=== PATIENT | male | born 1985 | race Caucasian/White ===

== ENCOUNTER 2016-09-26 08:44 | Emergency (ER) | payer MEDICAID ==
[2016-09-26] MEDS ORDERED: NORMAL SALINE 1,000 ML in NORMAL SALINE 1,000 ML IV ONE (09:11)
[2016-09-26] MEDS ORDERED: ONDANSETRON HCL/PF 2 MG/ML VIAL IV ONE (09:11)
[2016-09-26] MEDS ORDERED: KETOROLAC TROMETHAMINE 30 MG/ML VIAL IV ONE (09:11)
--- NOTE | 2016-09-26 09:15 | ERNOTE ---
Abdominal HPI - Narrative Date of Service: 09/26/16 - General Chief Complaint: Abdominal Pain Time Seen by Provider: 09/26/16 08:58 Source: patient - Immun/Allergies/Home Medications Immunizatons: IMMUNIZATION HX Immunizations Up to Date Yes History of Influenza Vaccine No Hx Pneumococcal Vaccination No Allergies/Adverse Reactions: Allergies No Known Allergies Allergy (Verified 09/26/16 08:59) Home Medications: HOME MEDICATIONS ALPRAZolam [Xanax] 0.5 - 1 mg PO DAILY PRN 10/24/15 [Last Taken Unknown] Ibuprofen [Motrin] 800 mg PO DAILY PRN 10/24/15 [Last Taken 10/23/15 22:30] Lisinopril [Zestril] 10 mg PO DAILY 10/24/15 [Last Taken Unknown] Sertraline HCl [Zoloft] 150 mg PO DAILY 10/24/15 [Last Taken Unknown] Ciprofloxacin HCl [Cipro] 500 mg PO BID #20 tab 09/26/16 [Last Taken Unknown] Ondansetron [Zofran Odt] 4 mg PO Q6H PRN #20 tab 09/26/16 [Last Taken Unknown] metroNIDAZOLE [Flagyl] 500 mg PO Q12H #14 tab 09/26/16 [Last Taken Unknown] - History of Present Illness Timing: intermittent Quality: moderate, cramping Activities at Onset: none Associated Symptoms: Present: diarrhea-mucous Prior Abdominal Problems: Present: none Review of Systems - Review of Systems Constitutional: Present: See HPI EYE: Present: no symptoms reported ENT: Present: no symptoms reported Respiratory: Present: no symptoms reported Cardiology: Present: no symptoms reported Gastrointestinal/Abdominal: Present: nausea, diarrhea, abdominal pain Genitourinary: Present: no symptoms reported Musculoskeletal: Present: no symptoms reported Skin: Present: no symptoms reported Neurological: Present: no symptoms reported Endocrine: Present: no symptoms reported Hematologic/Lymphatic: Present: no symptoms reported Psych: Present: no symptoms reported - Patient's Past Medical History Patient History - Medical: Anxiety, Depression Patient History - Cardiac/Respiratory: No pertinent hx Patient History - Cancer: No Hx of Cancer Patient History - Surgical Procedures: T & A - Social History Living Situations: home Abuse History: No History of abuse Psych History: Hx of Anxiety, Hx of Depression Smoking Status: Current every day smoker Have you smoked in the past 12 months: Yes Alcohol Use: occasionally Drug Use: marijuana - Immunizations Immunizations Up to Date: Yes Hx Pneumococcal Vaccination: No History of Influenza Vaccine: No Physical Exam - Physical Exam General Appearance: Present: wd/wn, alert, moderate distress Eye Exam: Normal inspection: bilateral, PERRL: bilateral Ears, Nose, Throat: Present: hearing grossly normal, normal pharynx, dry mucous membranes Neck: Present: normal inspection, nontender Respiratory: Present: no respiratory distress, normal breath sounds, no accessory muscle use, chest nontender, lungs clear Cardiovascular/Chest: Present: regular rate, rhythm, no murmur, normal peripheral pulses Gastrointestinal/Abdominal: Present: nondistended, no organomegaly, tenderness, abnormal bowel sounds Rectal Exam: Present: deferred Back Exam: Present: normal inspection, normal range of motion Extremity Exam: Present: normal inspection, non-tender, no edema, normal range of motion Neurological Exam: Present: alert, oriented, normal mood/affect Skin Exam: Present: normal color, warm/dry Lymphatic Exam: Present: no adenopathy ED Progress - Results and Orders Patient's Lab Results:: I have reviewed the patient's lab results. - Vital Signs Patient's Vital Signs:: I have reviewed the patient's vital signs. Vital Signs: Vital Signs 09/26/16 08:56 Temperature 35.1 C L Pulse Rate 80 Respiratory 14 Rate Blood Pressure 161/92 O2 Sat by Pulse 98 Oximetry - X-Ray X-Ray #1 X-Ray: abdomen Interpretation: Reviewed by me - Progress/Reassessment Chief Complaint: Abdominal Pain Progress:: Improved - Transfer of Care Expected Disposition: Discharge Plan - Plan Plan: Pt to be started on a clear liquid diet, oral antibiotics and Pepto-Bismol with each diarrhea stool. He will call his FP this week for further care as needed. Departure - Departure Clinical Impression: Gastroenteritis Disposition: Home self-care Condition: Good Instructions: Viral Gastroenteritis, Adult, [id number] Referrals: Alcides Brooke MD [Primary Care Provider] - Prescriptions: Ciprofloxacin HCl [Cipro] 500 mg PO BID #20 tab Ondansetron [Zofran Odt] 4 mg PO Q6H PRN #20 tab PRN Reason: Nausea And Vomiting metroNIDAZOLE [Flagyl] 500 mg PO Q12H #14 tab
[2016-09-26] MEDS ORDERED: ONDANSETRON HCL/PF 2 MG/ML VIAL ONE (09:34)
[2016-09-26] MEDS ORDERED: KETOROLAC TROMETHAMINE 30 MG/ML VIAL ONE (09:34)
--- OUTSIDE RECORDS SUMMARY | 2016-09-26 09:41 | XMS REPORT | Continuity of Care Document ---
:1985 Author Organization [facility] ([facility]) [place] [address] Phone [phone] Care Team Providers Name Role Phone Unavailable Primary Care Provider Unavailable Source Comments This disclosure is being made pursuant to the Care Everywhere program, applicable federal and state laws, and may not contain all informaitonavailable regarding this patient.[facility] ([facility]) Active Allergies and Adverse Reactions Not on File Current Medications Not on file Active Problems Not on file Social History Tobacco Use Types Packs/Day Years Used Date Never Assessed Plan of Care Health Maintenance Due Date Last Done Comments Hepatitis B Vaccine (1 of 3 - Primary Series) 1985 Tdap Vaccine 1994 Lipid Disorder Screening 2001 MMR Vaccine 2001 Td Vaccine 2001 Varicella Vaccine (1 of 2 - Adult - No Evidence of 2001 Immunity) Influenza Vaccine: Seasonal (#1) 03/02/2016 Results from Last 3 Months Not on file
--- OUTSIDE RECORDS SUMMARY | 2016-09-26 09:41 | XMS REPORT | Summary of Care ---
:1985 Author Organization [facility] Address [address] [place] [address]- Care Team Providers Name Role Phone Alcides Brooke Primary Care Physician Encounter Date(s): 12/27/15 - 12/27/[address] [address]- [facility] Discharge Diagnosis: Pain and swelling of left lower leg Final: Pain in left lower leg Final: Other specified soft tissue disorders Discharge Disposition: 01 Discharged to Home or Self Care Attending Physician: MANUELA Bazzi Admitting Physician: MANUELA Bazzi Vital Signs Most recent to oldest 1 2 3 [Reference Range]: Temperature Temporal Artery 36.9 DegC 36.6 DegC [36.0-38.0 DegC] (12/27/15 9:25 PM) (12/27/15 6:32 PM) Heart Rate Monitored [60-100 58 bpm 69 bpm 76 bpm bpm] *LOW* (12/27/15 8:39 PM) (12/27/15 6:32 PM) (12/27/15 9:25 PM) Respiratory Rate [12-20 br/min] 16 br/min 20 br/min 20 br/min (12/27/15 9:25 PM) (12/27/15 8:39 PM) (12/27/15 6:32 PM) SpO2 98 % 98 % 98 % (12/27/15 9:25 PM) (12/27/15 8:39 PM) (12/27/15 6:32 PM) Blood Pressure [90-130/60-90 115/77mmHg 130/71mmHg 144/77mmHg mmHg] (12/27/15 9:25 PM) (12/27/15 8:39 PM) *HI* (12/27/15 6:32 PM) Most recent to oldest [Reference Range]: 1 2 3 Weight Dosing 167.10 kg1 (12/27/15 6:35 PM) Weight Measured 167.1 kg (12/27/15 6:32 PM) 1Result Comment: This result was because the dosing weight was either not entered or it is>30 days old. This result is based off: Weight Measured December 27, 2015 18:32:00 CDT by Lily Merida Problem List No Known Problems Allergies, Adverse Reactions, Alerts No Known Allergies Medications Flomax 0.4 mg oral capsule 1 cap(s), Oral, Daily, X 7 days, # 7 cap(s), 0 Refill(s) Start Date: 12/30/13 Stop Date: 01/06/14 Status: CompletedHYDROcodone-acetaminophen 5 mg-325 mg oral tablet 2 tab(s), Oral, q6hr, X 3 days, # 15 tab(s), 0 Refill(s) Start Date: 12/30/13 Stop Date: 01/02/14 Status: Completedibuprofen 800 mg oral tablet 1 tab(s), Oral, TID, PRN pain moderate 4-7, X 7 days, # 30 tab(s), 0 Refill(s) Start Date: 12/30/13 Stop Date: 01/06/14 Status: CompletedKeflex 500 mg oral capsule 1 cap(s), Oral, QID, X 10 days, # 40 cap(s), 0 Refill(s), Start Date: 12/27/15 20:55:00 CDT Start Date: 12/27/15 Stop Date: 01/06/16 Status: CompletedlamoTRIgine 100 mg oral tablet 1 tab(s), Oral, Daily Start Date: 09/14/15 Status: Orderedlisinopril 10 mg oral tablet 1 tab(s), Oral, Daily Start Date: 09/14/15 Status: OrderedNorco 5 mg-325 mg oral tablet 1 tab(s), Oral, q6hr, PRN for pain, X 5 days, # 20 tab(s), 0 Refill(s), Start Date: 12/27/15 20:55:00 CDT Start Date: 12/27/15 Stop Date: 01/01/16 Status: Completedpenicillin V potassium 500 mg oral tablet 1 tab(s), Oral, QID, # 40 tab(s), 0 Refill(s), Start Date: 09/14/15 13:20:00 ORTHOPAEDIC DOCTOR Start Date: 09/14/15 Stop Date: 12/27/15 Status: Completedsertraline 100 mg oral tablet 1 tab(s), Oral, Daily Start Date: 09/14/15 Status: OrderedZofran ODT 4 mg oral tablet, disintegrating 1 tab(s), Oral, q6hr, PRN nausea, X 3 days, # 10 tab(s), 0 Refill(s) Start Date: 12/30/13 Stop Date: 01/02/14 Status: Completed Results Patient Viewable Results Most recent to oldest [Reference Range]: 1 WBC [4.8-10.8 thou/mm3] 12.9 thou/mm3 *HI* (12/27/15 7:15 PM) RBC [4.60-6.00 Mil/mm3] 4.86 Mil/mm3 (12/27/15 7:15 PM) Hgb [14.0-18.0 g/dL] 14.0 g/dL (12/27/15 7:15 PM) Hct [42.0-52.0 %] 41.3 % *LOW* (12/27/15 7:15 PM) MCV [80.0-94.0 fL] 85.0 fL (12/27/15 7:15 PM) MCH [25.0-38.0 pg/cell] 28.8 pg/cell (12/27/15 7:15 PM) MCHC [31.0-37.0 g/dL] 33.9 g/dL (12/27/15 7:15 PM) RDW [1.0-48.0 fL] 41.0 fL (12/27/15 7:15 PM) Platelet [130-400 thou/mm3] 249 thou/mm3 (12/27/15 7:15 PM) Neutrophils % Auto [50.0-75.0 %] 67.2 % (12/27/15 7:15 PM) Immature Granulocyte Auto [0.1-2.0 %] 0.4 % (12/27/15 7:15 PM) Lymphocytes % Auto [15.0-41.0 %] 24.5 % (12/27/15 7:15 PM) Monocytes % Auto [2.0-10.0 %] 6.3 % (12/27/15 7:15 PM) Eosinophils % Auto [0.0-6.0 %] 1.4 % (12/27/15 7:15 PM) Basophil % Auto [0.0-1.0 %] 0.2 % (12/27/15 7:15 PM) Neutrophils Absolute [1.5-5.9 thou/mm3] 8.7 thou/mm3 *HI* (12/27/15 7:15 PM) Immature Gran Absolute [0.01-0.03 thou/mm3] 0.05 thou/mm3 *HI* (12/27/15:15 PM) Lymphocytes Absolute [1.5-4.0 thou/mm3] 3.2 thou/mm3 (12/27/15 7:15 PM) Monocytes Absolute [0.0-0.9 thou/mm3] 0.8 thou/mm3 (12/27/15 7:15 PM) Eosinophil Absolute [0.0-0.7 thou/mm3] 0.2 thou/mm3 (12/27/15 7:15 PM) Basophil Absolute [0.0-0.2 thou/mm3] 0.0 thou/mm3 (12/27/15 7:15 PM) INR [0.9-1.1 INR] 1.0 INR (12/27/15 7:15 PM) PTT [22.7-35.2 seconds] 32.9 seconds (12/27/15 7:15 PM) D-Dimer [0.00-0.49 mcgFEU/mL] 0.44 mcgFEU/mL1 (12/27/15 7:15 PM) 1Result Comment: In low risk patients, normal D-Dimer test results (< 0.50 ug FEU/mL) indicate a low probability for deep venous thrombosis/pulmonary embolism. Immunizations No data available for this section Procedures Procedure Date Related Diagnosis Body Site Tonsillectomy and adenoidectomy; age 12 or over Social History No data available for this section Assessment and Plan No data available for this section
--- OUTSIDE RECORDS SUMMARY | 2016-09-26 09:42 | XMS REPORT | Summary of Care ---
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
[2016-09-26 09:43] LABS: Hematocrit 41.3 % (42.0-52.0); Hemoglobin 14.1 gm/dL (13.5-18.0); Mean Cell Volume 82.4 fl (78-100); Mean Corpuscular Hemoglobin 28.1 pg (27-31); Mean Corpuscular Hgb Conc 34.1 g/dl (32-36); Mean Platelet Volume 10.1 fl (6.0-9.5); Neutrophil # 4.3 K/mm3 (1.3-6.0); Neutrophil % 60.2 % (42-75.0); Platelet Count 242 K/mm3 (150-450); Red Blood Count 5.01 M/mm3 (4.7-6.0); Red Cell Distribution Width 12.9 % (11.5-14.0); White Blood Count 7.2 K/mm3 (4.0-10.5)
[2016-09-26 09:54] LABS: Albumin * 3.9 gm/dl (3.4-5.0); Anion Gap 18.2 mmol/L (6.8-13.8); BUN/Creatinine Ratio 16.3 (9.0-21.6); Bilirubin, Total 0.5 mg/dL (0.0-1.1); Ca. Corrected For Albumin 8.4 mg/dL (8.4-10.2); Calcium * 8.6 mg/dL (7.9-10.9); Carbon Dioxide 22.4 mmol/L (24-32.6); Potassium 3.6 mmol/L (3.4-4.6); Total Protein 7.6 gm/dL (6.2-8.2)
[2016-09-26 10:27] VITALS: BP 132/93
[2016-09-26 11:16] LABS: Urine Bilirubin Negative (NEGATIVE); Urine Blood Negative /ul (NEGATIVE); Urine Ketone Negative (NEGATIVE); Urine Nitrite Negative (NEGATIVE); Urine Protein 30 mg/dL (NEGATIVE); Urine Specific Gravity >=1.030 SP.GR. (1.005-1.030); Urine Urobilinogen Normal (NORMAL)
[2016-09-26 11:30] LABS: Urine Appearance Cloudy; Urine Color Yellow
[2016-09-26 11:31] LABS: Urine Bacteria 1+; Urine RBC None Seen /hpf (0-5); Urine WBC None Seen /hpf (0-5)
== END 2016-09-26 11:17 | disposition home or self-care (01) ==
LOC: ER 08:44
DX: A08.4 Viral intestinal infection, unspecified (principal); Z72.0 Tobacco use; F41.8 Other specified anxiety disorders

== ENCOUNTER 2017-06-11 10:33 | Emergency (ER) | payer MEDICAID ==
[2017-06-11] MEDS ORDERED: KETOROLAC TROMETHAMINE 60 MG/2 ML VIAL IM ONE ×2 (10:48→10:53)
--- NOTE | 2017-06-11 10:58 | ERNOTE ---
Lower Extremity HPI - Narrative Date of Service: 06/11/17 - General Lower Extremities Pain: foot: left, ankle: left Time Seen by Provider: 06/11/17 10:43 Source: patient Exam Limitations: no limitations - Immun/Allergies/Home Medications Immunizations: IMMUNIZATION HX Immunizations Up to Date Yes History of Influenza Vaccine No Hx Pneumococcal Vaccination No Allergies/Adverse Reactions: Allergies Allergy/AdvReac Type Severity Reaction Status Date / Time No Known Allergies Allergy Verified 06/11/17 10:50 Home Medications: HOME MEDICATIONS ALPRAZolam [Xanax] 1 mg PO TID PRN 10/24/15 [Last Taken Unknown] Ibuprofen [Motrin] 800 mg PO DAILY PRN 10/24/15 [Last Taken 10/23/15 22:30] Sertraline HCl [Zoloft] 200 mg PO DAILY 10/24/15 [Last Taken Unknown] oxyCODONE HCL/ACETAMINOPHEN [Percocet 5 MG/325 MG] 1 tab PO Q4H PRN #20 tab 05/18 [Last Taken Unknown] - History of Present Illness Narrative: Pt. comes in with c/o L foot and ankle pain after he twisted his ankle when getting out of his truck 12 hours ago. Pt. states that he elevated his foot and applied ice and took 800mg of Ibuprofen without relief of symptoms. Pt. denies any numbness, tingling, CP, SOB, fever, but does state that he has some bruising. Pt. states that movement, palpation, and ambulation exacerbate the pain. Review of Systems - Review of Systems Constitutional: Present: no symptoms reported. Absent: recent illness, fever, chills, weakness, fatigue, malaise EYE: Present: no symptoms reported ENT: Present: no symptoms reported Respiratory: Present: no symptoms reported. Absent: shortness of breath, cough , wheezing Cardiology: Present: no symptoms reported. Absent: chest pain, palpitations, edema Gastrointestinal/Abdominal: Present: no symptoms reported Musculoskeletal: Present: joint pain - L ankle and foot. Absent: back pain Skin: Present: no symptoms reported Neurological: Present: no symptoms reported. Absent: headache, dizziness/light- headedness All Other Systems: All systems neg except as marked - Patient's Past Medical History Patient History - Medical: Anxiety, Depression Patient History - Cardiac/Respiratory: No pertinent hx Patient History - Cancer: No Hx of Cancer Patient History - Surgical Procedures: T & A - Social History Abuse History: No History of abuse Psych History: Hx of Anxiety, Hx of Depression - Immunizations Immunizations Up to Date: Yes Hx Pneumococcal Vaccination: No History of Influenza Vaccine: No Physical Exam - Physical Exam General Appearance: Present: wd/wn, alert, no apparent distress Head Exam: Present: normal inspection, no evidence of injury Eye Exam: Normal inspection: bilateral, PERRL: bilateral, EOMI: bilateral Respiratory: Present: no respiratory distress, normal breath sounds, no accessory muscle use, chest nontender, lungs clear Cardiovascular/Chest: Present: regular rate, rhythm, no murmur, normal peripheral pulses Extremity Exam: Present: other - no pain of distal tibia, pain on palpation of lateral malleolus and posterior achilles as well as along the tibiotalus. Bruising over tibiotalus. Pain with applied resistance with ext and flex of foot. Neurological Exam: Present: alert, oriented, normal mood/affect, no motor/ sensory deficits, strapper II-XII nml as tested, disoriented to person Skin Exam: Present: warm/dry. Absent: pallor ED Progress - Date and Time Seen: Date and Time: 06/11/17 11:39 Discussed with Jim Mauricio and he recomemnds wade OCL and follow up next week. - Vital Signs Patient's Vital Signs:: I have reviewed the patient's vital signs. - X-Ray X-Ray #1 X-Ray: ankle Interpretation: Reviewed by me X-ray Comments: lucency on frontal view of fibula with point tenderness so likely nondisplaced fracture Departure Clinical Impression: Fibula fracture Qualifiers: Encounter type: initial encounter Fibula location: distal Fracture type: closed Fracture morphology: unspecified fracture morphology Laterality: left Qualified Code(s): S82.832A - Other fracture of upper and lower end of left fibula, initial encounter for closed fracture - Departure Disposition: Home self-care Condition: Good Instructions: Undisplaced Fibular Ankle Fracture Treated With Immobilization, Adult, Form - Excuse from Work, School, or Physical Activity Additional Instructions: Please follow up with ortho as scheduled Referrals: Alcides Brooke MD [Primary Care Provider] - Prescriptions: oxyCODONE HCL/ACETAMINOPHEN [Percocet 5 MG/325 MG] 1 tab PO Q4H PRN #20 tab PRN Reason: Pain
[2017-06-11 11:57] VITALS: BP 154/82
== END 2017-06-11 12:09 | disposition home or self-care (01) ==
LOC: ER 10:33
PROC: 2W3RX1Z Immobilization of Left Lower Leg using Splint (ICD-10-PCS; principal; 2017-06-11)
DX: S82.832A Other fracture of upper and lower end of left fibula, initial encounter for closed fracture (principal); W17.89XA Other fall from one level to another, initial encounter; Y93.89 Activity, other specified; Y92.9 Unspecified place or not applicable; Y99.9 Unspecified external cause status